=== PATIENT | female | born 1985 | race Caucasian/White ===

== ENCOUNTER 2017-09-28 01:21 | Emergency (ER) | payer MEDICAID ==
[~2017-09-28] VITALS: Ht 167.6 cm; Wt 72.0 kg
[2017-09-28] MEDS ORDERED: IBUPROFEN 600MG TABLET PO ONE (08:30)
[2017-09-28 10:09] VITALS: BP 121/72
== END 2017-09-28 10:09 | disposition home or self-care (01) ==
LOC: ER 01:21
DX: S63.501A Unspecified sprain of right wrist, initial encounter (principal); S50.11XA Contusion of right forearm, initial encounter; F43.10 Post-traumatic stress disorder, unspecified; F12.10 Cannabis abuse, uncomplicated; F17.200 Nicotine dependence, unspecified, uncomplicated; Y04.0XXA Assault by unarmed brawl or fight, initial encounter; Y93.89 Activity, other specified; Y92.018 Other place in single-family (private) house as the place of occurrence of the external cause
CPT/HCPCS: 73090; 73110; 81025; 99284